=== PATIENT | female | born 1960 | race Caucasian/White ===

== ENCOUNTER 2024-11-14 18:02 | Emergency (ER) | payer MEDICAID, SELFPAY ==
[2024-11-14 18:03] VITALS: BMI 18.8
[2024-11-14 18:41] VITALS: BP 143/93; PULSE 97; RESP 18; TEMP 36.9; O2SAT 99
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
[2024-11-14] MEDS: HYDROcodone/APAP 5/325 TABLET 1 TAB PO (19:35)
[2024-11-14 19:49] LABS: Basophils # (Auto) 0.1 Thou/mm3 (0.0-0.2); Basophils % (Auto) 1 % (0-2.5); Eosinophils # (Auto) 0.1 Thou/mm3 (0.0-0.5); Eosinophils % (Auto) 1 % (0-10); Hematocrit 43.9 % (36.0-46.0); Immature Granulocytes % (Auto) 0 % (0-0); Immature Granulocytes Auto 0.02 Thou/mm3 (0.00-0.00); Lymphocytes # (Auto) 2.8 Thou/mm3 (1.0-4.8); Lymphocytes % (Auto) 31 % (10-50); Mean Corpuscular HGB Conc 31.9 g/dl (31.0-37.0); Mean Corpuscular Hemoglobin 27.8 pg (25.0-35.0); Mean Corpuscular Volume 87 fL (80-100); Monocytes # (Auto) 0.8 Thou/mm3 (0.0-0.8); Monocytes % (Auto) 9 % (0-12); Neutrophils # (Auto) 5.3 Thou/mm3 (1.8-7.7); Neutrophils % (Auto) 58 % (37-80); Nucleated Red Blood Cell % 0 /100 WBC (0); Platelet Count 326 Thou/mm3 (140-440); RDW Standard Deviation 41.6 fL (36.4-46.3); Red Blood Count 5.04 Miln/mm3 (4.00-5.20)
[2024-11-14 20:10] LABS: Partial Thromboplastin Time 28.5 Seconds (22.0-36.0); Prothrombin Time 10.6 Seconds (9.0-12.2)
[2024-11-14 20:12] VITALS: BP 163/115; PULSE 95; RESP 20; TEMP 36.8; O2SAT 100
[2024-11-14 20:14] LABS: Alanine Aminotransferase 16 U/L (10-49); Albumin, Serum 4.3 gm/dL (3.4-4.8); Albumin/Globulin Ratio 1.2 (1.2-2.2); Alkaline Phosphatase 128 U/L (46-116); Anion Gap 11 (7-16); Aspartate Amino Transferase 26 U/L (0-34); BUN/Creatinine Ratio 18 Ratio (12-20); Bilirubin,Total 0.3 mg/dL (0.3-1.2); Blood Urea Nitrogen 36 mg/dL (9-23); Calcium 10.1 mg/dL (8.3-10.6); Calcium (Corrected) 10.1 mg/dL (8.5-10.1); Carbon Dioxide 24.9 mMol/L (20.0-31.0); Chloride 106 mMol/L (98-107); Estimated Creatinine Clearance 21.6 mL/min (>60); Globulin 3.6 gm/dL (2.3-3.5); Glucose 88 mg/dL (74-106); Osmolality,Calculated 290 (275-295); Potassium 3.6 mMol/L (3.4-5.1); Sodium 142 mMol/L (136-145); Total Protein 7.9 gm/dL (5.7-8.2); eGFR 27 See Note
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
== END 2024-11-14 20:34 | disposition left against medical advice (07) ==
PROVIDERS: Physician Assistant; Emergency Provider Emergency Medicine; PCP Internal Medicine
DX: Z53.29 Procedure and treatment not carried out because of patient's decision for other reasons (principal); S02.85XA Fracture of orbit, unspecified, initial encounter for closed fracture; S02.91XA Unspecified fracture of skull, initial encounter for closed fracture; N28.9 Disorder of kidney and ureter, unspecified; S19.9XXA Unspecified injury of neck, initial encounter; Y04.0XXA Assault by unarmed brawl or fight, initial encounter
CPT/HCPCS: 36415; 70450; 70486; 72125; 80053; 80307; 81001; 85025; 85610; 85730; 99284; A9270

== ENCOUNTER 2025-04-23 20:52 | Emergency (ER) | payer MEDICARE, SELFPAY ==
[2025-04-23 21:06] VITALS: PULSE 92; O2SAT 98; BMI 18.8
[2025-04-23 21:16] VITALS: BP 123/86; PULSE 113; RESP 20; TEMP 37.1; O2SAT 94
[2025-04-23 21:56] VITALS: PULSE 109; O2SAT 95
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
[2025-04-23 23:54] LABS: Basophils # (Auto) 0.0 Thou/mm3 (0.0-0.2); Basophils % (Auto) 0 % (0-2.5); Eosinophils # (Auto) 0.0 Thou/mm3 (0.0-0.5); Eosinophils % (Auto) 0 % (0-10); Hematocrit 43.2 % (36.0-46.0); Hemoglobin 13.5 g/dL (12.0-16.0); Immature Granulocytes Auto 0.03 Thou/mm3 (0.00-0.00); Lymphocytes # (Auto) 2.5 Thou/mm3 (1.0-4.8); Lymphocytes % (Auto) 19 % (10-50); Mean Corpuscular HGB Conc 31.3 g/dl (31.0-37.0); Mean Corpuscular Hemoglobin 27.9 pg (25.0-35.0); Mean Corpuscular Volume 89 fL (80-100); Monocytes # (Auto) 1.4 Thou/mm3 (0.0-0.8); Monocytes % (Auto) 11 % (0-12); Neutrophils # (Auto) 9.0 Thou/mm3 (1.8-7.7); Neutrophils % (Auto) 69 % (37-80); Nucleated Red Blood Cell # 0.00 Thou/mm3 (0.00-0.00); Nucleated Red Blood Cell % 0 /100 WBC (0); Platelet Count 331 Thou/mm3 (140-440); RDW Standard Deviation 46.8 fL (36.4-46.3); Red Blood Count 4.84 Miln/mm3 (4.00-5.20); White Blood Count 12.9 Thou/mm3 (3.6-11.0)
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
[2025-04-24 00:12] LABS: Alanine Aminotransferase 17 U/L (10-49); Albumin, Serum 4.2 gm/dL (3.4-4.8); Albumin/Globulin Ratio 1.1 (1.2-2.2); Alcohol, Blood Medical < 3.0 mg/dL (0-10.0); Alkaline Phosphatase 126 U/L (46-116); Anion Gap 11 (7-16); Aspartate Amino Transferase 29 U/L (0-34); BUN/Creatinine Ratio 16 Ratio (12-20); Bilirubin,Total 0.3 mg/dL (0.3-1.2); Blood Urea Nitrogen 30 mg/dL (9-23); Calcium 9.9 mg/dL (8.3-10.6); Calcium (Corrected) 9.9 mg/dL (8.5-10.1); Carbon Dioxide 28.1 mMol/L (20.0-31.0); Chloride 101 mMol/L (98-107); Creatinine (Component) 1.9 mg/dL (0.6-1.3); Estimated Creatinine Clearance 22.4 mL/min (>60); Globulin 3.7 gm/dL (2.3-3.5); Glucose 126 mg/dL (74-106); Osmolality,Calculated 287 (275-295); Potassium 3.6 mMol/L (3.4-5.1); Sodium 140 mMol/L (136-145); Total Protein 7.9 gm/dL (5.7-8.2); eGFR 29 See Note
[2025-04-24 00:54] VITALS: BP 146/95; PULSE 107; RESP 20; TEMP 37.1; O2SAT 95
--- NOTE | 2025-04-24 03:37 | EDNOTE_ITS ---
Emergency Room Addendum Addendum Narrative: Upon reassessment and discharge, patient is refusing to leave saying there's something wrong with me, my whole body feels numb. I can't walk right. Repeat physical exam reveals normal pupil response and EOM. CN II-XII grossly intact. Strength equal bilaterally. Gait somewhat shuffling, but mostly intact. Speech normal. Care signed out to Dr. Quiroz pending MRI, SS consult, and dispo. Patient eventually discharged. No CVA on MRI. Patient was also put in touch with social science instructor.
[2025-04-24 04:18] VITALS: BP 159/104; PULSE 107; RESP 20; TEMP 36.6; O2SAT 95
[2025-04-24 06:00] VITALS: BP 153/100; PULSE 95; RESP 20; TEMP 36.4; O2SAT 95
[2025-04-24 11:20] VITALS: BP 124/105; PULSE 108; RESP 20; TEMP 37.8; O2SAT 96
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
[2025-04-24] MEDS: HYDROcodone/APAP 5/325 TABLET 2 TAB PO (13:13)
[2025-04-24 14:31] VITALS: BP 138/98; PULSE 84; RESP 16; TEMP 37.1; O2SAT 95
== END 2025-04-24 16:00 | disposition home or self-care (01) ==
PROVIDERS: Physician Assistant; Emergency Provider Emergency Medicine
DX: S09.90XA Unspecified injury of head, initial encounter (principal); S19.9XXA Unspecified injury of neck, initial encounter; M48.02 Spinal stenosis, cervical region; D72.829 Elevated white blood cell count, unspecified; W22.8XXA Striking against or struck by other objects, initial encounter; Z59.00 Homelessness unspecified
CPT/HCPCS: 36415; 70450; 70551; 72125; 72141; 80053; 80320; 85025; 99284; A9270; G0480